=== PATIENT | male | born 1975 | race Caucasian/White ===

== ENCOUNTER 2016-06-04 15:07 | Emergency (ER) | payer BC | END 2016-06-04 16:39 | disposition home or self-care (01) | LOC: ER1 15:07 | DX: J40 Bronchitis, not specified as acute or chronic (principal); F17.210 Nicotine dependence, cigarettes, uncomplicated | CPT/HCPCS: 87081; 87880; 99283 ==

== ENCOUNTER → 2016-07-26 | Outpatient (CLI) | payer BC | LOC: RAD 15:56 | DX: R07.89 Other chest pain (principal) | CPT/HCPCS: 71020 ==

== ENCOUNTER → 2020-09-19 | Outpatient (CLI) | payer OTHER | LOC: RAD 14:46 | DX: M25.571 Pain in right ankle and joints of right foot (principal) | CPT/HCPCS: 73610 ==

== ENCOUNTER 2021-05-25 19:31 | Emergency (ER) | payer OTHER ==
[2021-05-25 20:13] LABS: HEMOGLOBIN 14.4 gm/dl (14.0-17.5); RED BLOOD COUNT 4.78 M/UL (4.20-5.50); WHITE BLOOD COUNT 10.4 K/UL (4.5-11.0)
[2021-05-25 20:33] LABS: BUN/CREATININE RATIO 18 (0-10)
[2021-05-25] MEDS ORDERED: LISINOPRIL10 MG PO (21:37)
== END 2021-05-25 21:52 | disposition home or self-care (01) ==
LOC: ER1 19:31
PROVIDERS: Family Medicine
DX: I10 Essential (primary) hypertension (principal); R51.9 Headache, unspecified
CPT/HCPCS: 80048; 85025; 99283